=== PATIENT | female | born 1990 | race African-American/Black ===

== ENCOUNTER 2017-11-07 12:02 | Emergency (ER) | payer SELFPAY ==
[~2017-11-07] VITALS: Ht 170.2 cm; Wt 70.0 kg
[2017-11-07] MEDS ORDERED: METOCLOPRAMIDE HCL 10MG TABLET PO ONE (13:15)
[2017-11-07] MEDS ORDERED: KETOROLAC 30MG/ML VIAL IM ONE (13:15)
[2017-11-07 14:22] VITALS: BP 110/74
== END 2017-11-07 14:27 | disposition home or self-care (01) ==
LOC: ER 12:46
DX: R51 Headache (principal); M25.561 Pain in right knee; V43.52XA Car driver injured in collision with other type car in traffic accident, initial encounter; Y93.89 Activity, other specified; Y92.410 Unspecified street and highway as the place of occurrence of the external cause
CPT/HCPCS: 73562; 96372; 99284; J1885; J8597